=== PATIENT | female | born 1990 | race Caucasian/White ===

== ENCOUNTER 2017-08-25 20:55 | Observation (INO) ==
[2017-08-25] MEDS ORDERED: *HR* HYDROcodone/Acet 5/325 mg TABLET PO PRN (23:30)
[2017-08-25] MEDS ORDERED: Ondansetron 4 MG/2 ML VIAL IVP PRN (23:30)
[2017-08-25] MEDS ORDERED: *HR* Promethazine 25 MG/ML VIAL IVP PRN (23:30)
[2017-08-25] MEDS ORDERED: Naloxone 0.4 MG/ML INJ IVP PRN (23:30)
[2017-08-25] MEDS ORDERED: Acetaminophen 325 MG TABLET PO PRN (23:30)
--- NOTE | 2017-08-25 23:35 | Internal Med History&Physical ---
Date of Encounter: 08/26/17 Time of Encounter: 23:33 Assessment and Plan (1) Right ureteral calculus Current visit: Yes Status: Acute Will place the pt into Med Surg for observation Reviewed her CT of Abd- showed 3mm Rt UVJ stone with mild hydronephrosis Will start her on symptomatic and supportive care with IV hydration + IV analgesics Empirical abx Urology was already notified by ER (2) UTI (urinary tract infection) Current visit: Yes Status: Acute reviewed UA showing many WBC and Bacteria will start her on empirical abx Rocephin Qualifiers: Qualified Code(s): N39.0 - Urinary tract infection, site not specified; R31.9 - Hematuria, unspecified; R31.9 - Hematuria, unspecified Internal Medicine - H&P: HPI Chief complaint: Dysuria / Rt flank pain Admitted From: Emergency Dept Plans for Post Hospital Care: Home History of present illness: Ms. Quigley is a 27 year old female presented to the [facility] ER with acute onset of right flank pain radiating to right lower quadrant of abdomen. Pt stated her pain 8/10 in severity. Sharp and stabbing pain. Associated with nasuea. Denied any CP / SOB. Her CT of Abd showed Rt UVJ 3mm stone, so pt was transferred here for further care. Pt pain is tolerable with medication only. Patient denies dysuria. Patient denies fevers or chills. Patient denies similar symptoms or kidney stones in the past. Past Med Surg Social Fam HX - Past Medical History Medical history: no medical history Psychiatric history: no psych history - Social History Smoking Status: Never smoker Smokeless Tobacco Status: No Alcohol use: none Drug use: none - Family History Grandfather Hx Family Cardiac Disorders: Yes (CAD) Hx Family Genitourinary Disorders: Yes (Renal calcluli) Father Hx Family Genitourinary Disorders: Yes (Renal calculi) Internal Medicine - H&P: Meds No Known Home Drugs 08/25/17 [History] 3 Allergy/AdvReac Type Severity Reaction Status Date / Time No Known Allergies Allergy Verified 08/25/17 17:18 All Systems PM: A 10-system review of systems was performed and is negative for pertinent findings except as documented above in the HPI. Review of systems: All the systems are reviewed everything is benign except the systems and symptoms I mentioned in the history of present illness - Constitutional General appearance: Present: A&O X 3, no acute distress, answers questions appropriately - Head Head exam: Present: atraumatic, normal inspection - Neck Neck exam general surgery: Present: supple - Respiratory Respiratory exam: Present: CTAB. Absent: accessory muscle use, rales, rhonchi, wheezes - Cardiovascular Cardiovascular exam: Present: RRR, +S1, +S2. Absent: diastolic murmur, gallop, rubs, systolic murmur - GI/Abdominal GI/Abdominal exam: Present: normal bowel sounds, soft, tenderness (RLQ-- Mild tenderness). Absent: distended, guarding, rebound, rigid - Extremities Exam Extremities exam: Absent: calf tenderness, pedal edema, tenderness - Back Exam Back exam: Present: CVA tenderness (R). Absent: CVA tenderness (L) - Neurological Exam Neurological exam: Present: alert, oriented X3 - Psychiatric Psychiatric exam: Present: normal affect, normal mood - VTE Reasons for not Prescribing Prophylaxis: Treatment not Indicated - Low risk for VTE
[2017-08-25] MEDS: *HR* Morphine 2 MG/ML SYRINGE IVP PRN (23:55)
[2017-08-26] MEDS: 0.9 % Sodium Chloride 1,000 ML IVC SCH ×2 (01:00→09:18)
[2017-08-26] MEDS: *HR* Morphine 2 MG/ML SYRINGE IVP PRN (04:33)
[2017-08-26 04:58] LABS: Basophils % 0.5 %; Eosinophils # 0.1 K/mcL (0.0-0.6); Eosinophils % 1.1 %; Hematocrit 35.1 % (35.3-44.9); Immature Granulocytes % 0.2 % (0-4); Lymphocytes % 31.3 %; Mean Corpuscular HGB Conc 31.3 g/dL (31.6-35.5); Mean Corpuscular Hemoglobin 26.8 pg (28.0-33.3); Mean Corpuscular Volume 85.6 fL (83.0-100.0); Mean Platelet Volume 11.2 fL (9.4-12.4); Monocytes % 15.4 %; Neutrophils # 3.3 K/mcL (1.6-8.9); Platelet Count 164 K/mcL (140-400); Red Cell Distribution Width 14.9 % (11.5-14.5); Segmented Neutrophils % 51.5 %
[2017-08-26 05:06] LABS: BUN/Creatinine Ratio 9 (6-26); Blood Urea Nitrogen 10 mg/dL (7-20); Calcium 8.3 mg/dL (8.6-10.8); Carbon Dioxide 26 mEq/L (19-29); Chloride 112 mEq/L (98-109); Glucose 95 mg/dL (70-99); Osmolality,Calculated 293 (280-300); Potassium 4.1 mEq/L (3.5-4.5); Sodium 142 mEq/L (136-145); eGFR For African Americans > 60 (> 60); eGFR For Non-African Americans > 60 (> 60)
--- NOTE | 2017-08-26 06:39 | Urology - Consult Note ---
Date of Encounter: 08/26/17 Time of Encounter: 06:37 - Assessment and Plan (1) Right ureteral calculus Current Visit: Yes Status: Acute Assessment and plan: Plan on taking the patient to the operative room today for right ureteroscopic stone extraction. Urology CN:ROYAL Consult date: 08/26/17 Reason for consult Urology: Other (right ureteral stone) Requesting physician: Sindy Frias History of present illness: Marcos is a 27-year-old female with a history of severe right-sided flank pain who was at an outside facility. Patient was found to have a 3 mm distal ureteral stone. Patient was transferred here for further care. Patient is having persistent nausea with some vomiting. No fevers. Serum creatinine normal. Past Med Surg Social Fam HX - Past Medical History Medical history: no medical history Psychiatric history: no psych history - Past Surgical History Surgical History: - Social History Smoking Status: Never smoker Smokeless Tobacco Status: No Alcohol use: none Drug use: none - Family History Grandfather Hx Family Cardiac Disorders: Yes (CAD) Hx Family Genitourinary Disorders: Yes (Renal calcluli) Father Hx Family Genitourinary Disorders: Yes (Renal calculi) Medications and Allergies No Known Home Drugs 08/25/17 [History] 3 Allergy/AdvReac Type Severity Reaction Status Date / Time No Known Allergies Allergy Verified 08/25/17 17:18 Review of Systems - Constitutional no chills - EENT Nose, mouth and throat: no dizziness - Cardiovascular no chest pain Exam Initial Vital Signs Temp Pulse Resp BP Pulse Ox 97.7 F 82 16 118/82 97 08/25/17 23:39 08/25/17 23:39 08/25/17 23:39 08/25/17 23:39 08/25/17 23:39 - General physical appearance Present: well developed - Respiratory Present: normal respiratory effort - Cardiovascular Cardiovascular exam IM: RRR Urology Results - Labs 08/26/17 04:17 08/26/17 04:17 Abnormal lab results Hgb 11.0 g/dL (11.5-15.4) L 08/26/17 04:17 Hct 35.1 % (35.3-44.9) L 08/26/17 04:17 MCH 26.8 pg (28.0-33.3) L 08/26/17 04:17 MCHC 31.3 g/dL (31.6-35.5) L 08/26/17 04:17 RDW 14.9 % (11.5-14.5) H 08/26/17 04:17 Chloride 112 mEq/L (98-109) H 08/26/17 04:17 Calcium 8.3 mg/dL (8.6-10.8) L 08/26/17 04:17 Diabetes panel 08/26/17 Range/Units 04:17 Sodium 142 (136-145) mEq/L Potassium 4.1 (3.5-4.5) mEq/L Chloride 112 H (98-109) mEq/L Carbon Dioxide 26 (19-29) mEq/L BUN 10 (7-20) mg/dL Creatinine 1.06 (0.57-1.11) mg/dL Glucose 95 (70-99) mg/dL Calcium 8.3 L (8.6-10.8) mg/dL Calcium panel 08/26/17 Range/Units 04:17 Calcium 8.3 L (8.6-10.8) mg/dL Pituitary panel 08/26/17 Range/Units 04:17 Sodium 142 (136-145) mEq/L Potassium 4.1 (3.5-4.5) mEq/L Chloride 112 H (98-109) mEq/L Carbon Dioxide 26 (19-29) mEq/L BUN 10 (7-20) mg/dL Creatinine 1.06 (0.57-1.11) mg/dL Glucose 95 (70-99) mg/dL Calcium 8.3 L (8.6-10.8) mg/dL Adrenal panel 08/26/17 Range/Units 04:17 Sodium 142 (136-145) mEq/L Potassium 4.1 (3.5-4.5) mEq/L Chloride 112 H (98-109) mEq/L Carbon Dioxide 26 (19-29) mEq/L BUN 10 (7-20) mg/dL Creatinine 1.06 (0.57-1.11) mg/dL Glucose 95 (70-99) mg/dL Calcium 8.3 L (8.6-10.8) mg/dL All other labs normal. - Imaging CT scan - abdomen: image reviewed CT scan - pelvis: image reviewed Consult Discharge Plan - Plan Referrals: Karla Velez, EDITORIAL CLERK [Primary Care Provider] -
--- NOTE | 2017-08-26 07:10 | Anesthesia Evaluation PreOp ---
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: Denies Any Significant HX Other Medical History: Denies Any Significant HX Anesthesia History: No Prior Anesthetic Complications, Past Anesthesia Test: Negative (08/25/2017) Alcohol Use: none Drug use: none Medications and Allergies No Known Home Drugs 08/25/17 [History] 3 Allergy/AdvReac Type Severity Reaction Status Date / Time No Known Allergies Allergy Verified 08/25/17 17:18 - Meds/Allergy Pre-op Review Medications Reviewed: Yes Allergies Reviewed: Yes Beta Blockers on Current Med List: No Anesthesia Results - Labs 08/26/17 04:17 08/26/17 04:17 Laboratory Tests 08/25/17 17:28 Urine Test Negative Anesthesia Exam Vital Signs/O2 Sat, Most Current Temp Pulse Resp BP Pulse Ox 98.0 F 94 16 136/85 95 08/26/17 04:19 08/26/17 04:19 08/26/17 04:19 08/26/17 04:19 08/26/17 04:19 Height: 5'3''/1.6 m Weight: 199 lbs/90 kg NPO (# of Hours): 8 Pain Scale: 7 (right flank) Pain Scale Used: Numeric (1 - 10) - HEENT Pupil (Motor): EOMI Mallampati: II Teeth: Normal (chipped upper right molar) Oral Opening: Greater than 3 - 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
[2017-08-26] MEDS ORDERED: *HR* FentaNYL (PF) 100 MCG/2 ML VIAL ONE (07:14)
[2017-08-26] MEDS ORDERED: Lidocaine -MPF 2% 2 ML VIAL ONE (07:14)
[2017-08-26] MEDS ORDERED: *HR* Succinylcholine 200 MG/10 ML VIAL IVP ONE (07:14)
[2017-08-26] MEDS ORDERED: *HR* Midazolam HCl 2 MG/2 ML VIAL ONE (07:14)
[2017-08-26] MEDS ORDERED: *HR* Rocuronium Bromide 50 MG/5 ML VIAL ONE (07:14)
[2017-08-26] MEDS ORDERED: *HR* Propofol 200 MG/20 ML VIAL IVP ONE (07:14)
[2017-08-26] MEDS: cefTRIAXone 1,000 MG in Water for inj. (sterile) 10 ML IVP SCH ×2 (07:21→09:17)
[2017-08-26] MEDS ORDERED: *HR* Morphine 2 MG/ML SYRINGE IVP PRN ×2 (07:30→09:01)
[2017-08-26] MEDS ORDERED: Dexamethasone 4 MG/ML VIAL ONE (08:10)
[2017-08-26] MEDS ORDERED: Ondansetron 4 MG/2 ML VIAL ONE (08:10)
--- NOTE | 2017-08-26 08:16 | Operative Note ---
Date of procedure: 08/26/17 Pre-op diagnosis: right ureteral stone Post-op diagnosis: same Procedure: Right ureteroscopic basket retrieval stone fragment. Anesthesia: GETA Surgeon: Easton Ortiz Specimen: Right ureteral stone Condition: stable Disposition: PACU Procedure in Detail: Patient was prepped and draped in normal sterile fashion. Timeout procedure performed. I then inserted the semirigid ureteroscope into the patient's bladder. The right ureteral orifice was cannulated. Immediately and located the distal 3 mm stone. Basket device was then used to engage the stone and remove it in its entirety. I then placed a semirigid ureteroscope back into the right ureter and surveyed the entire ureter up to the right UPJ with no further stone seen. The scope was slowly withdrawn and bladder drained procedure ended. Patient taken to PACU in stable condition
--- NOTE | 2017-08-26 08:16 | Event Note ---
Date of Encounter: 08/26/17 Time of Encounter: 08:16 Patient okay to discharge home per urology. Follow-up with me in 1-2 weeks.
--- NOTE | 2017-08-26 08:46 | Anesthesia Evaluation Post Op ---
Date of Encounter: 08/26/17 Time of Encounter: 08:45 - Vital Signs Vital Signs: Vital Signs/O2 Sat, Most Current Temp Pulse Resp BP Pulse Ox 98.2 F 82 14 122/84 96 08/26/17 08:18 08/26/17 08:38 08/26/17 08:38 08/26/17 08:38 08/26/17 08:38 - Lungs Lungs: Clear Ascult./Percussion - Airway Airway: Non-obstructed - Cardiovascular Regular Rate - Mental Status Mental Status: Alert & Oriented, Answers Appropriately - Pain Pain Scale: 0 Pain Scale used: Numeric (1 - 10) - Nausea Vomiting Nausea Vomiting: Not Present - Hydration Hydration: NPO, Has not voided - Discharge PostOp Status: Transfer Patient to floor
[2017-08-26] MEDS ORDERED: cefTRIAXone 1,000 MG in Water for inj. (sterile) 10 ML IVP SCH (09:00)
[2017-08-26] MEDS ORDERED: 0.9 % Sodium Chloride 1,000 ML IVC SCH (09:01)
[2017-08-26] MEDS ORDERED: Naloxone 0.4 MG/ML INJ IVP PRN (09:01)
[2017-08-26] MEDS ORDERED: *HR* Promethazine 25 MG/ML VIAL IVP PRN (09:01)
[2017-08-26] MEDS ORDERED: Ondansetron 4 MG/2 ML VIAL IVP PRN (09:01)
[2017-08-26] MEDS ORDERED: Acetaminophen 325 MG TABLET PO PRN (09:01)
[2017-08-26] MEDS: *HR* HYDROcodone/Acet 5/325 mg TABLET PO PRN ×2 (09:34→15:13)
--- NOTE | 2017-08-26 13:48 | Internal Med Progress Note ---
Date of Encounter: 08/26/17 Time of Encounter: 13:20 - Assessment and plan (1) Trichomonal cystitis Current Visit: Yes Status: Acute Assessment and plan: f/u vaginosis panel pt to receive one time dose of Metronidazole 2gm PO (2) Right ureteral calculus Current Visit: Yes Status: Acute Assessment and plan: s/p right ureteroscopic basket retrieval stone fragment. pain control likely d/c in am (3) Obesity (BMI 30-39.9) Current Visit: Yes Status: Chronic (4) DVT prophylaxis Current Visit: Yes Status: Acute Assessment and plan: heparin sq early ambulation - Subjective Interval history: Patient seen and examined at bedside. s/p ureteral calculi removal today (08/26/17), reports of improvement in her pain but pain still persists requiring pain medications. Urinalysis reported present Trichomonas, vaginosis panel ordered will treat with one time dose of Metronidazole 2g PO - Constitutional Vitals: Temp Pulse Resp BP Pulse Ox 97.8 F 69 12 125/84 97 08/26/17 09:00 08/26/17 12:22 08/26/17 10:00 08/26/17 12:22 08/26/17 12:22 General appearance: Present: A&O X 3, no acute distress, obese, answers questions appropriately - Head Head exam: Present: atraumatic, normocephalic - Eye Eye exam: Present: conjuntiva pink, sclera anicteric - Respiratory Respiratory exam: Present: CTAB. Absent: accessory muscle use, rales, rhonchi, wheezes - Cardiovascular Cardiovascular exam: Present: RRR, +S1, +S2. Absent: diastolic murmur, gallop, rubs, systolic murmur - GI/Abdominal GI/Abdominal exam: Present: normal bowel sounds, soft, no peritoneal signs. Absent: distended, tenderness - Extremities Exam Extremities exam: Present: warm, radial pulses palpable and symmetrical. Absent : calf tenderness, cyanotic, pedal edema - Neurological Exam Neurological exam: Present: alert, oriented X3 - Psychiatric Psychiatric exam: Present: normal affect, normal mood Internal Medicine: Result - Labs CBC & Chem 7: 08/26/17 04:17 08/26/17 04:17 Labs: Short CBC 08/26/17 Range/Units 04:17 WBC 6.4 (4.3-11.1) K/mcL Hgb 11.0 L (11.5-15.4) g/dL Hct 35.1 L (35.3-44.9) % Plt Count 164 (140-400) K/mcL Neutrophils # 3.3 (1.6-8.9) K/mcL BMP 08/26/17 04:17 Sodium 142 Potassium 4.1 Chloride 112 H Carbon Dioxide 26 BUN 10 Creatinine 1.06 Glucose 95 Calcium 8.3 L - VTE Reasons for not Prescribing Prophylaxis: Treatment not Indicated - Low risk for VTE Documentation of Mechanical Device: Intermittent pneumatic compression device Consult Discharge Plan - Plan Referrals: Karla Velez, RURAL MAIL CONTRACTOR [Primary Care Provider] -
[2017-08-26] MEDS ORDERED: metroNIDAZOLE 500 MG TABLET PO ONE (13:50)
[2017-08-26 15:48] LABS: Candida DNA Not Detected (Not Detect); Gardnerella DNA Not Detected (Not Detect); Trichomonas DNA Not Detected (Not Detect)
[2017-08-26] MEDS: *HR* Heparin 5,000 UNIT/ML VIAL SQ SCH (17:00)
[2017-08-27] MEDS: *HR* Heparin 5,000 UNIT/ML VIAL SQ SCH (05:36)
[2017-08-27 05:50] LABS: Basophils % 0.4 %; Eosinophils % 0.5 %; Hematocrit 34.8 % (35.3-44.9); Hemoglobin 10.8 g/dL (11.5-15.4); Immature Granulocytes % 0.3 % (0-4); Lymphocytes # 1.9 K/mcL (0.6-4.6); Lymphocytes % 25.1 %; Mean Corpuscular Hemoglobin 26.5 pg (28.0-33.3); Mean Corpuscular Volume 85.5 fL (83.0-100.0); Mean Platelet Volume 11.2 fL (9.4-12.4); Monocytes # 0.8 K/mcL (0.0-1.3); Monocytes % 10.5 %; Neutrophils # 4.9 K/mcL (1.6-8.9); Nucleated Red Blood Cells 0.3 /100 WBC (0); Platelet Count 179 K/mcL (140-400); Red Blood Count 4.07 M/mcL (3.82-4.97); Red Cell Distribution Width 14.9 % (11.5-14.5); Segmented Neutrophils % 63.2 %
[2017-08-27 06:02] LABS: BUN/Creatinine Ratio 18 (6-26); Blood Urea Nitrogen 15 mg/dL (7-20); Calcium 8.6 mg/dL (8.6-10.8); Carbon Dioxide 24 mEq/L (19-29); Chloride 112 mEq/L (98-109); Glucose 100 mg/dL (70-99); Magnesium 1.9 mg/dL (1.6-2.6); Osmolality,Calculated 295 (280-300); Potassium 3.9 mEq/L (3.5-4.5); Sodium 142 mEq/L (136-145); eGFR For African Americans > 60 (> 60); eGFR For Non-African Americans > 60 (> 60)
[2017-08-27] MEDS ORDERED: cefTRIAXone 1,000 MG in Water for inj. (sterile) 10 ML IVP SCH (10:00)
[2017-08-27 10:50] VITALS: BP 127/70
--- NOTE | 2017-08-27 12:41 | Discharge Summary ---
Date of Encounter: 08/27/17 Time of Encounter: 12:05 - Discharge Diagnosis (1) Trichomonal cystitis Priority: Primary Status: Acute (2) Right ureteral calculus Priority: Primary Status: Acute (3) Obesity (BMI 30-39.9) Priority: Secondary Status: Chronic (4) DVT prophylaxis Priority: Secondary Status: Acute - Discharge Medications Prescriptions: HYDROcodone/Acet 5/325 mg [Carlton 5-325 mg] 1 tab PO Q6H PRN #10 tablet PRN Reason: moderate to severe pain metroNIDAZOLE [Flagyl] 2,000 mg PO ONCE #1 tablet Home Medications: HYDROcodone/Acet 5/325 mg [Carlton 5-325 mg] 1 tab PO Q6H PRN #10 tablet 08/27/17 [Rx] metroNIDAZOLE [Flagyl] 2,000 mg PO ONCE #1 tablet 08/27/17 [Rx] Allergies/Adverse Reactions: 3 Allergy/AdvReac Type Severity Reaction Status Date / Time No Known Allergies Allergy Verified 08/26/17 16:11 Date of admission: 08/25/17 22:55 Primary care physician: Karla Velez CNP Consults: 08/25/17 23:32 Consult to Urology [CONS] Routine Consulting Provider: Urology Selam Reason for Consult: Rt UVJ stone Call Completed: No Discharging clinician: Alethea Durbin Anticipated date of discharge: 08/27/17 - Patient Status Disposition: Home, Self-Care Condition: Good Functional capacity at discharge: independent ambulation Overall status at discharge: patient is back to baseline - Discharge Instructions Instructions: Kidney Stones (DC), Ureteroscopy (DC) Follow Up With: Karla Velez CNP [Primary Care Provider] - Forms: Work/School Release Additional Instructions: Please follow up with your primary care physician within five days after your discharge from the hospital. Please follow up with urology within one to two weeks after your discharge from the hospital. you are given a prescription of Metronidazole (Flagyl) 2gm one time dose for your partner for treatment of Trichomonas. Please follow up with your gynecology for further evaluation of your positive urinalysis results of trichomonas. Follow-up appointments: If there is not an appointment listed below, please call your physician and schedule a follow-up appointment. If you have congestive heart failure and your symptoms return, make an appointment with your physician. Medication List: Carry an up to date list of medications you are taking at all time. We have given you an updated medication list including any new medications that you have been prescribed. Please provide that list to your primary provider Symptoms: If your condition changes or you experience any of the following symptoms, notify your physician immediately: Unusual or worsening pain, fever, persistent nausea and vomiting, bleeding, increase in swelling (especially in your legs), sudden weight gain, extreme dizziness, chest pain, increased drainage or redness from a wound or incision. Go to the emergency department if you experience a problem with breathing. Weights: If you have a history of swelling or shortness of breath, weigh yourself daily and notify your physician if you have a weight gain of two or more pounds in one day or 5 or more pounds in a week. If you experience any of the warning signs for stroke: Sudden numbness or weakness of the face, arm or leg; especially on one side of the body, sudden confusion, trouble speaking or understanding, sudden trouble seeing in one or both eyes, sudden trouble walking, dizziness, loss of balance or coordination, sudden sever headache with no cause; Call 911 or go to the emergency room. Stroke is a medical emergency. Some risk factors for stroke: Age, cigarette smoking, diabetes, excessive alcohol consumption, family history , high blood pressure, overweight, physical inactivity, prior stroke, heart attack, diagnosis of carotid artery stenosis or other artery disease. If you smoke, STOP: Smoking or tobacco use significantly increases your risk of heart and lung disease. Your chance of disease greatly increases if you continue to smoke. For more information, call the [place] tobacco quit line for smoking cessation QUIT-NOW ( ) - Diet and Activity Activity: increase activity as tolerated Diet: advance to your usual diet Hospital course: Ms. Quigley is a 27 year old female with no med history admitted for acute onset right flank pain and UTI. Upon further evaluation, she was found to have right ureteral calculus and trichomonas cystitis. She was followed by urology and underwent right ureteroscopic basket retrieval of stone fragment. Pt tolerate the procedure well. She was treated with one time dose of Flagyl 2gm PO. She will also be discharged with prescription of Flagyl 2gm PO x 1 dose for her partner. Pt is stable for discharge with follow up with urology and PCP. - Time Spent with Patient Total time spent providing and/or coordinating discharge services: Less than 30 minutes - Constitutional Vitals: Temp Pulse Resp BP Pulse Ox 98.2 F 73 14 127/70 97 08/27/17 10:46 08/27/17 10:46 08/27/17 10:46 08/27/17 10:46 08/27/17 10:46 General appearance: Present: A&O X 3, no acute distress, obese, answers questions appropriately - Head Head exam: Present: atraumatic, normocephalic - Eye Eye exam: Present: conjuntiva pink, sclera anicteric - Respiratory Respiratory exam: Present: CTAB. Absent: accessory muscle use, rales, rhonchi, wheezes - Cardiovascular Cardiovascular exam: Present: RRR, +S1, +S2. Absent: diastolic murmur, gallop, rubs, systolic murmur - GI/Abdominal GI/Abdominal exam: Present: normal bowel sounds, soft, no peritoneal signs. Absent: distended, tenderness - Extremities Exam Extremities exam: Present: warm, radial pulses palpable and symmetrical. Absent : calf tenderness, pedal edema - Neurological Exam Neurological exam: Present: alert, oriented X3 - VTE Reasons for not Prescribing Prophylaxis: Treatment not Indicated - Low risk for VTE Documentation of Mechanical Device: Intermittent pneumatic compression device
== END 2017-08-27 15:22 | disposition home or self-care (01) ==
LOC: 3ANU → SUATTDRO 22:55
PROVIDERS: ADMIT Family Medicine; ATTEND Internal Medicine